=== PATIENT | female | born 1990 | race Hispanic/Latino ===

== ENCOUNTER 2019-02-23 23:38 | Emergency (ER) | payer OTHER ==
[2019-02-24] MEDS ORDERED: DIPHENHYDRAMINE HCL 25 MG CAPSULE ONE (00:31)
== END 2019-02-24 01:32 | disposition home or self-care (01) ==
LOC: EDH 23:38
DX: R20.2 Paresthesia of skin (principal); T38.0X5A Adverse effect of glucocorticoids and synthetic analogues, initial encounter; J45.909 Unspecified asthma, uncomplicated; Z88.8 Allergy status to other drugs, medicaments and biological substances; Z90.49 Acquired absence of other specified parts of digestive tract; Z90.710 Acquired absence of both cervix and uterus; Z98.890 Other specified postprocedural states; Y92.89 Other specified places as the place of occurrence of the external cause
CPT/HCPCS: 99282; Q0163